=== PATIENT | male | born 1990 | race Caucasian/White ===

== ENCOUNTER 2018-07-09 08:03 | Emergency (ER) | payer MEDICAID, SELFPAY ==
[2018-07-09 08:07] VITALS: BP 141/86; PULSE 58; RESP 16; TEMP 37; O2SAT 99
--- NOTE | 2018-07-09 08:11 | DI.RAD_ITS ---
SYMPTOM/DIAGNOSIS: DISTAL RADIUS PAIN LEFT HAND: No fracture or dislocation is seen. IMPRESSION: Negative left hand.
--- NOTE | 2018-07-09 08:16 | W.ED.GENAD ---
Discharge Plan Discharge Details Chief Complaint: Orthopedic Primary Care Provider: Nba Torres ED Provider: Duglas Gonzalez Home Meds and New Rx's Prescriptions: No Action No Known Home Meds RF: 0 Medical Decision Making MDM Narrative Medical decision making narrative: 28-year-old male presents with left wrist pain. 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 It began after he felt a pop during the day of bad hand cramps. His exam is essentially unremarkable with the exception of tenderness the distal radius and some tenderness with resisted supination. Differential diagnosis would include de Quervain's tenosynovitis, fracture, strain he is referred for X HPI - General Adult General Date/Time Provider Initiated Documentation: 07/09/18 08:10. Limitations to Documentation: no limitations. Information obtained by: patient. History of Present Illness 28 year old M presents to the emergency department with the chief complaint of Left wrist pain, described as moderate, Quality is described as aching, and is localized to the left and upper extremity. Patient reports no radiation. Patient started experiencing this day(s) and it has been constant. Rest improves symptom(s), Movement worsens symptoms . Patient notes no other symptoms.. HPI Narrative: 28-year-old left-handed male presents with 2 days of the abrupt onset of left wrist pain that occurred while he was having full body cramps from suffering heat stroke. He then was pushing himself off the ground and felt a pop in his left wrist. He has had nonradiating, achy, constant pain is worse with movement since that time. Ameliorated by rest. No other complaints. No numbness, tingling, weakness. He says his cramps resolved with potassium Related Data Home Medications Medication Instructions Recorded Confirmed Unknown [No Known Home Meds] 07/09/18 07/09/18 Allergies Allergy/AdvReac Type Severity Reaction Status Date / Time codeine Allergy itchy Unverified 02/23/18 15:33 difficulty breathing General Stated Complaint: Orthopedic JULIO: 5 Review of Systems Review of Systems 6 systems reviewed, otherwise - [facility] Social History Smoking/Tobacco Use Status: Current every day Exam Const General: cooperative and healthy appearing Nutritional Appearance: average body habitus Orientation: alert, awake and oriented x3 HENMT Head: normal to inspection and normocephalic Resp Effort & Inspection: normal respiratory effort and able to speak in complete sentences Neuro General: alert and oriented x3 Extrem General: normal to inspection, full ROM, normal capillary refill and other (Left upper extremity with normal muscular tone and movement. 2+ radial pulse bilaterally. The left wrist is tender at the distal radius. Tender with resisted supination. Tender mildly so with axial loading of the left thumb. Otherwise normal motor, vascular, sensory testing) Psych Appearance: grossly normal and well kempt Course Vital Signs Temperature 37.0 C 07/09/18 08:07 Pulse 58 L 07/09/18 08:07 Respiratory Rate 16 07/09/18 08:07 Blood Pressure 141/86 H 07/09/18 08:07 Pulse Oximetry 99 07/09/18 08:07 Temperature 37.0 C 07/09/18 08:07 Pulse 58 L 07/09/18 08:07 Respiratory Rate 16 07/09/18 08:07 Blood Pressure 141/86 H 07/09/18 08:07 Pulse Oximetry 99 07/09/18 08:07
--- NOTE | 2018-07-09 08:22 | ED.GENADUL_ITS ---
Discharge Plan Discharge Details Chief Complaint: Orthopedic Primary Care Provider: Nba Torres ED Provider: Duglas Gonzalez Home Meds and New Rx's Prescriptions: No Action No Known Home Meds RF: 0 Medical Decision Making MDM Narrative Medical decision making narrative: 28-year-old male presents with left wrist pain. 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 It began after he felt a pop during the day of bad hand cramps. His exam is essentially unremarkable with the exception of tenderness the distal radius and some tenderness with resisted supination. Differential diagnosis would include de Quervain's tenosynovitis, fracture, strain he is referred for X HPI - General Adult General Date/Time Provider Initiated Documentation: 07/09/18 08:10 . Limitations to Documentation: no limitations . Information obtained by: patient . History of Present Illness 28 year old M presents to the emergency department with the chief complaint of Left wrist pain, described as moderate, Quality is described as aching, and is localized to the left and upper extremity. Patient reports no radiation. Patient started experiencing this day(s) and it has been constant. Rest improves symptom(s), Movement worsens symptoms . Patient notes no other symptoms.. HPI Narrative: 28-year-old left-handed male presents with 2 days of the abrupt onset of left wrist pain that occurred while he was having full body cramps from suffering heat stroke. He then was pushing himself off the ground and felt a pop in his left wrist. He has had nonradiating, achy, constant pain is worse with movement since that time. Ameliorated by rest. No other complaints. No numbness, tingling, weakness. He says his cramps resolved with potassium Related Data Home Medications Medication Instructions Recorded Confirmed Unknown [No Known Home Meds] 07/09/18 07/09/18 Allergies Allergy/AdvReac Type Severity Reaction Status Date / Time codeine Allergy itchy Unverified 02/23/18 15:33 difficulty breathing General Stated Complaint: Orthopedic JULIO: 5 Review of Systems Review of Systems 6 systems reviewed, otherwise - [facility] Social History Smoking/Tobacco Use Status: Current every day Exam Const General: cooperative and healthy appearing Nutritional Appearance: average body habitus Orientation: alert, awake and oriented x3 HENMT Head: normal to inspection and normocephalic Resp Effort & Inspection: normal respiratory effort and able to speak in complete sentences Neuro General: alert and oriented x3 Extrem General: normal to inspection, full ROM, normal capillary refill and other ( Left upper extremity with normal muscular tone and movement. 2+ radial pulse bilaterally. The left wrist is tender at the distal radius. Tender with resisted supination. Tender mildly so with axial loading of the left thumb. Otherwise normal motor, vascular, sensory testing) Psych Appearance: grossly normal and well kempt Course Vital Signs Temperature 37.0 C 07/09/18 08:07 Pulse 58 L 07/09/18 08:07 Respiratory Rate 16 07/09/18 08:07 Blood Pressure 141/86 H 07/09/18 08:07 Pulse Oximetry 99 07/09/18 08:07 Temperature 37.0 C 07/09/18 08:07 Pulse 58 L 07/09/18 08:07 Respiratory Rate 16 07/09/18 08:07 Blood Pressure 141/86 H 07/09/18 08:07 Pulse Oximetry 99 07/09/18 08:07
== END 2018-07-09 09:10 | disposition home or self-care (01) ==
PROVIDERS: Emergency Provider Emergency Medicine; PCP Family Medicine
DX: S63.502A Unspecified sprain of left wrist, initial encounter (principal); X50.9XXA Other and unspecified overexertion or strenuous movements or postures, initial encounter
CPT/HCPCS: 29125; 99283; 73130; L3807

== ENCOUNTER 2018-08-07 02:36 | Emergency (ER) | payer MEDICAID, SELFPAY ==
[2018-08-07 02:37] VITALS: BP 149/88; PULSE 92; RESP 17; TEMP 37.7; O2SAT 95
--- NOTE | 2018-08-07 02:43 | DI.RAD_ITS ---
SYMPTOMS/DIAGNOSIS: TRAUMA/PUNCHED WALL LEFT HAND: Three views. No acute fracture or dislocation is seen. There is mild soft tissue swelling at the metacarpophalangeal joints. No radiopaque foreign bodies are identified. IMPRESSION: No acute fracture or dislocation.
--- NOTE | 2018-08-07 03:06 | W.ED.GENAD ---
Discharge Plan Disposition Patient Disposition: [facility] Condition: Good Discharge Details Chief Complaint: Orthopedic Clinical Impression: Contusion of hand, left, Alcohol intoxication Reason For Visit: [place] Primary Care Provider: Nba Torres ED Provider: Ariel Reyes Home Meds and New Rx's Prescriptions: No Action No Known Home Meds RF: 0 Discharge Instructions Instructions: Alcohol Intoxication (ED), Contusion in Adults (ED) Additional Instructions: X-ray is negative, there are no fractures. Use ice and Motrin to help with pain and swelling. You are being taken into protective custody until you are sober. You may follow-up with primary care next week. Return to ED if problems. Referrals: Nba Torres [Primary Care Provider] - Medical Decision Making Patient sent in by police for evaluation of hand injury. He is intoxicated and per police he blew .220 on the breathalyzer. Fingers appear normal. Wrist is normal. Denies other injury. X-rays obtained. Per my review there is no fracture. I am waiting for preliminary radiology report. Patient seen by [facility] at this time and papers to take into protective custody will be done. I did speak to the patient's sister who states she does not have the ability to take responsibility for him tonight. HPI General Mode of arrival: EMS. Date/Time Provider Initiated Documentation: 08/07/18 02:42. Limitations to Documentation: no limitations. Information obtained by: patient. HPI Narrative: Patient is transported from the police station to the ED for evaluation of hand injury. He is intoxicated. He states that he got mad and punched a wall. He denies any other injury. He denies being struck himself. He does admit to drinking. He has left hand pain. He is left-hand dominant. Related Data Home Medications Medication Instructions Recorded Confirmed Unknown [No Known Home Meds] 07/09/18 08/07/18 Allergies Allergy/AdvReac Type Severity Reaction Status Date / Time codeine Allergy itchy Unverified 08/07/18 02:44 difficulty breathing General Stated Complaint: Orthopedic JULIO: 4 Review of Systems Constitutional Denies headache(s) and Denies weakness ENT Denies headache(s) and Denies neck pain Cardiovascular Denies chest pain and Denies dyspnea Respiratory Denies dyspnea Gastrointestinal Denies abdominal pain, Denies nausea and Denies vomiting Musculoskeletal Denies back pain, Denies neck pain, Denies numbness and Reports other (Hand pain) Integumentary/Breasts Denies wounds Neurologic Denies headache(s), Denies numbness and Denies weakness [facility] Social History Smoking/Tobacco Use Status: Current every day Exam Const General: cooperative and no acute distress Orientation: alert and oriented x3 HENMT Head: normocephalic and atraumatic Eyes Pupils: PERRL EOM: EOM intact bilaterally Resp Effort & Inspection: normal respiratory effort Auscultation: clear to auscultation bilaterally Cardio Rate: regular rate Rhythm: regular rhythm Heart Sounds: S1 normal and S2 normal Skin Trauma: no lacerations or abrasions Neuro General: alert, oriented x3, gait normal, no focal motor deficits and CN's II-XI intact bilaterally Sensory Exam: no sensory deficits noted Extrem Left upper extremity: wrist Details: normal to inspection, normal ROM and radial pulse present; no tenderness and no swelling and hand Details: neuromotor exam normal, neurosensory exam normal, tenderness and swelling Course Vital Signs Temperature 99.9 F H 08/07/18 02:37 Pulse 92 H 08/07/18 02:37 Respiratory Rate 17 08/07/18 02:37 Blood Pressure 149/88 H 08/07/18 02:37 Pulse Oximetry 95 08/07/18 02:37 Temperature 99.9 F H 08/07/18 02:37 Temperature Source Temporal Artery Scan 08/07/18 02:37 Pulse 92 H 08/07/18 02:37 Respiratory Rate 17 08/07/18 02:37 Respiratory Effort 08/07/18 02:37 Blood Pressure 149/88 H 08/07/18 02:37 Pulse Oximetry 95 08/07/18 02:37 Oxygen Delivery Method Room Air 08/07/18 02:37 Oxygen Flow Rate 0 08/07/18 02:37 Pain Level 10 08/07/18 02:43
--- NOTE | 2018-08-07 04:02 | DI.VRAD_ITS ---
EXAM: XR Left Hand Complete, 3 or More Views CLINICAL HISTORY: 28 years old, male; Pain; Hand; Left TECHNIQUE: Frontal, lateral and oblique views of the left hand. COMPARISON: CR XR hand LT complete 07/09/2018 8:17 AM FINDINGS: Bones/joints: Unremarkable. No acute fracture. No dislocation. Soft tissues: Mild soft tissue swelling. No radiopaque foreign body. IMPRESSION: No fractures or dislocations. Mild soft tissue swelling over the dorsum of the left hand. Dictated and Authenticated by: Jose C Raya MD. Ordering:NOEMÍ JOSE MD
== END 2018-08-07 03:49 | disposition home or self-care (01) ==
PROVIDERS: Emergency Provider Emergency Medicine; PCP Family Medicine
DX: S60.222A Contusion of left hand, initial encounter (principal); W22.8XXA Striking against or struck by other objects, initial encounter; F10.129 Alcohol abuse with intoxication, unspecified
CPT/HCPCS: 99285; 73130; 99284

== ENCOUNTER 2018-10-05 07:00 | Emergency (ER) | payer MEDICAID, SELFPAY ==
[2018-10-05 07:04] VITALS: BP 142/95; PULSE 77; RESP 18; TEMP 36.7; O2SAT 99
--- NOTE | 2018-10-05 07:22 | W.ED.GENAD ---
Discharge Plan Disposition Patient Disposition: HOME Condition: Improving Discharge Details Chief Complaint: DentalOral Clinical Impression: Odontalgia Primary Care Provider: Nba Torres ED Provider: Duglas Gonzalez Home Meds and New Rx's Prescriptions: New penicillin V potassium 500 mg tablet 500 mg PO TID 10 Days Qty: 30 RF: 0 Discharge Instructions Instructions: Toothache (ED) Additional Instructions: Take penicillin as prescribed. Warm, salt water gargling will assist in decreasing her discomfort. Tylenol and ibuprofen as needed for pain. Follow-up with dentistry as planned, return to the emergency department for any acute concerns. Medical Decision Making 28-year-old male presents from home with day 2 of left mandibular pain and swelling. He is partially edentulous with numerous dental caries and a history of previous dental infections. He arrives with unremarkable vital signs. Is not of evidence of abscess. He does appear to have periapical infection of the lower central incisors. He has plans for follow-up with dentistry. Patient consented and agreed to dental block and was given an inferior alveolar nerve block with good success. I have started him on ibuprofen and will initiate a course of penicillin. He is to follow-up with dentistry HPI General Mode of arrival: ambulatory. Date/Time Provider Initiated Documentation: 10/05/18 07:13. Limitations to Documentation: no limitations. Information obtained by: patient. History of Present Illness 28 year old M presents to the emergency department with the chief complaint of Left lower dental pain, described as similar to prior episodes, Quality is described as aching, dull and constant, and is localized to the mouth and left. Patient started experiencing this hour(s) and it has been constant. No relieving factors improve symptom(s), Eating worsens symptoms . Patient notes no other symptoms.. Related Data Home Medications Medication Instructions Recorded Confirmed penicillin V potassium 500 mg PO TID 10 Days #30 tab 10/05/18 Previous Rx's Medication Instructions Recorded penicillin V potassium 500 mg PO TID 10 Days #30 tab 10/05/18 Allergies Allergy/AdvReac Type Severity Reaction Status Date / Time codeine Allergy itchy Unverified 10/05/18 07:08 difficulty breathing General Stated Complaint: DentalOral JULIO: 4 Review of Systems Review of Systems For systems reviewed and otherwise - [facility] Social History Smoking/Tobacco Use Status: Current every day Social History Smoking/Tobacco Use Status: Current every day Exam Narrative Exam Narrative: GEN: awake, alert, oriented 3. Pleasant, well groomed, interactive. HEAD: Normocephalic, atraumatic ENT: Mucous membranes moist, oropharynx nearly completely edentulous, dental caries present left lower central incisors with surrounding tenderness to percussion. No buccal or lingual fluctuance, External ear exam unremarkable EYES: PERRL, EOMI NECK: Full ROM, no HELADIO, no menigismus EXT: Full ROM, no edema, no rash Neuro: Grossly normal neurologic exam, conversant, interactive. Psych: Speech fluent, thoughts congruent, affect normal Course Vital Signs Temperature 36.7 C 10/05/18 07:04 Pulse 77 10/05/18 07:04 Respiratory Rate 18 10/05/18 07:04 Blood Pressure 142/95 H 10/05/18 07:04 Pulse Oximetry 99 10/05/18 07:04 Temperature 36.7 C 10/05/18 07:04 Temperature Source Skin 10/05/18 07:04 Pulse 77 10/05/18 07:04 Respiratory Rate 18 10/05/18 07:04 Respiratory Effort 10/05/18 07:05 Blood Pressure 142/95 H 10/05/18 07:04 Blood Pressure Position Sitting 10/05/18 07:04 Pulse Oximetry 99 10/05/18 07:04 Oxygen Delivery Method Room Air 10/05/18 07:04 Oxygen Flow Rate 0 10/05/18 07:04 Pain Level 8 10/05/18 07:05 Procedures Nerve Block Nerve Block 1: Local Anesthetic: Bupivicaine 0.25% Amount of anesthesia used (mL): 2 Side: left Intraoral Nerve Block: inferior alveolar Procedure Successful: Yes Patient Tolerated Procedure: well Complications: none
--- NOTE | 2018-10-05 07:26 | ED.GENADUL_ITS ---
Discharge Plan Disposition Patient Disposition: HOME Condition: Improving Discharge Details Chief Complaint: DentalOral Clinical Impression: Odontalgia Primary Care Provider: Nba Torres ED Provider: Duglas Gonzalez Home Meds and New Rx's Prescriptions: New penicillin V potassium 500 mg tablet 500 mg PO TID 10 Days Qty: 30 RF: 0 Discharge Instructions Instructions: Toothache (ED) Additional Instructions: Take penicillin as prescribed. Warm, salt water gargling will assist in decreasing her discomfort. Tylenol and ibuprofen as needed for pain. Follow-up with dentistry as planned, return to the emergency department for any acute concerns. Medical Decision Making 28-year-old male presents from home with day 2 of left mandibular pain and swelling. He is partially edentulous with numerous dental caries and a history of previous dental infections. He arrives with unremarkable vital signs. Is not of evidence of abscess. He does appear to have periapical infection of the lower central incisors. He has plans for follow-up with dentistry. Patient consented and agreed to dental block and was given an inferior alveolar nerve block with good success. I have started him on ibuprofen and will initiate a course of penicillin. He is to follow-up with dentistry HPI General Mode of arrival: ambulatory . Date/Time Provider Initiated Documentation: 10/05/18 07:13 . Limitations to Documentation: no limitations . Information obtained by: patient . History of Present Illness 28 year old M presents to the emergency department with the chief complaint of Left lower dental pain, described as similar to prior episodes, Quality is described as aching, dull and constant, and is localized to the mouth and left. Patient started experiencing this hour(s) and it has been constant. No relieving factors improve symptom(s), Eating worsens symptoms . Patient notes no other symptoms.. Related Data Home Medications Medication Instructions Recorded Confirmed penicillin V potassium 500 mg PO TID 10 Days #30 tab 10/05/18 Previous Rx's Medication Instructions Recorded penicillin V potassium 500 mg PO TID 10 Days #30 tab 10/05/18 Allergies Allergy/AdvReac Type Severity Reaction Status Date / Time codeine Allergy itchy Unverified 10/05/18 07:08 difficulty breathing General Stated Complaint: DentalOral JULIO: 4 Review of Systems Review of Systems For systems reviewed and otherwise - [facility] Social History Smoking/Tobacco Use Status: Current every day Social History Smoking/Tobacco Use Status: Current every day Exam Narrative Exam Narrative: GEN: awake, alert, oriented 3. Pleasant, well groomed, interactive. HEAD: Normocephalic, atraumatic ENT: Mucous membranes moist, oropharynx nearly completely edentulous, dental caries present left lower central incisors with surrounding tenderness to percussion. No buccal or lingual fluctuance, External ear exam unremarkable EYES: PERRL, EOMI NECK: Full ROM, no HELADIO, no menigismus EXT: Full ROM, no edema, no rash Neuro: Grossly normal neurologic exam, conversant, interactive. Psych: Speech fluent, thoughts congruent, affect normal Course Vital Signs Temperature 36.7 C 10/05/18 07:04 Pulse 77 10/05/18 07:04 Respiratory Rate 18 10/05/18 07:04 Blood Pressure 142/95 H 10/05/18 07:04 Pulse Oximetry 99 10/05/18 07:04 Temperature 36.7 C 10/05/18 07:04 Temperature Source Skin 10/05/18 07:04 Pulse 77 10/05/18 07:04 Respiratory Rate 18 10/05/18 07:04 Respiratory Effort 10/05/18 07:05 Blood Pressure 142/95 H 10/05/18 07:04 Blood Pressure Position Sitting 10/05/18 07:04 Pulse Oximetry 99 10/05/18 07:04 Oxygen Delivery Method Room Air 10/05/18 07:04 Oxygen Flow Rate 0 10/05/18 07:04 Pain Level 8 10/05/18 07:05 Procedures Nerve Block Nerve Block 1: Local Anesthetic: Bupivicaine 0.25% Amount of anesthesia used (mL): 2 Side: left Intraoral Nerve Block: inferior alveolar Procedure Successful: Yes Patient Tolerated Procedure: well Complications: none
[2018-10-05] MEDS: Penicillin V POTASSIUM 500 MG TAB PO (07:31)
[2018-10-05] MEDS: Ibuprofen 800 MG TAB PO (07:31)
== END 2018-10-05 07:33 | disposition home or self-care (01) ==
LOC: ER 07:35
PROVIDERS: Emergency Provider Emergency Medicine; PCP Family Medicine
DX: R68.84 Jaw pain (principal); K04.7 Periapical abscess without sinus
CPT/HCPCS: 64402

== ENCOUNTER 2018-12-22 13:17 | Emergency (ER) | payer MEDICAID, SELFPAY ==
[2018-12-22 13:32] VITALS: BP 145/63; PULSE 78; RESP 12; TEMP 37; O2SAT 98
--- NOTE | 2018-12-22 14:47 | ED.GENADUL_ITS ---
Discharge Plan Disposition Patient Disposition: HOME Condition: Stable Discharge Details Chief Complaint: Orthopedic Clinical Impression: Peripheral neuropathy, Left wrist sprain Primary Care Provider: Nba Torres ED Provider: Solange Zhao Home Meds and New Rx's Prescriptions: No Action No Known Home Meds RF: 0 Discharge Instructions Instructions: Peripheral Neuropathy (ED), Wrist Sprain (ED) Additional Instructions: Alternate Tylenol and Motrin as needed and directed for pain. Apply ice to the affected area several times daily for 20 minutes at a time. Follow-up with your primary care doctor in 1 week for reevaluation as needed. Return immediately to the emergency department any worsening or new concerning symptoms. Stand Alone Forms: Work Release Discharge Data Discharge Date/Time-TO BE ENTERED AT DEPARTURE: 12/22/18 15:00 Discharge Physician: Solange Zhao Medical Decision Making 28-year-old male presents with left hand and wrist pain, tingling and weakness extending from his left wrist down into his hand and up to his forearm. 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 Neurovascularly intact. Motor sensory grossly intact, although appears to have pain when assessing neurological function. Normal skin temperature and color. Presentation appears most likely consistent with a peripheral neuropathy, which may be carpal tunnel or cubital tunnel syndrome. Most likely source of pain is from the wrist. His presentation may be due to a wrist sprain which may be causing pain and tingling in hand. He has no other focal deficits and his symptoms appear isolated to the distal upper extremity. Do not suspect a central cause to his symptoms, and this appears more peripheral. Patient states he is mainly here for a work note. Will give a work note, instructed to rest left hand for the next week, alternate Tylenol and Motrin. Patient also given wrist splint. He is instructed to return here with any worsening or new concerning symptoms. HPI General Mode of arrival: ambulatory . Date/Time Provider Initiated Documentation: 12/22/18 13:54 . Limitations to Documentation: no limitations . Information obtained by: patient . HPI Narrative: Pt is a 28yo M who presents with L hand pain, weakness and tingling since yesterday morning. 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 Pt states he woke up yesterday with pain in his L wrist extending into his L hand. He also has tingling radiating up to his L forearm and down to all of his fingers but worse in his L thumb. He was painting with his L hand the day before the symptoms started. He states he has weakness and worsening pain and tingling with use of his hand. He states he has a cold sensation radiation up to his L forearm and down to his hand. He denies headache, neck pain, shoulder pain, leg pain or weakness or dizziness. Pt states he is also here for a work note as his employer advised him to be evaluated on when he can return to work and use his hand. Related Data Home Medications Medication Instructions Recorded Confirmed Unknown [No Known Home Meds] 12/22/18 12/22/18 Allergies Allergy/AdvReac Type Severity Reaction Status Date / Time codeine Allergy itchy Unverified 12/22/18 13:35 difficulty breathing General Stated Complaint: Orthopedic JULIO: 4 Review of Systems Review of Systems All systems reviewed & are unremarkable except as noted in HPI and below Constitutional Reports as per HPI, Denies chills and Denies fever(s) Eyes Denies blurry vision ENT Denies dizziness, Denies sore throat and Denies throat swelling Cardiovascular Denies chest pain and Denies dyspnea Respiratory Denies cough and Denies dyspnea Gastrointestinal Denies abdominal pain, Denies diarrhea and Denies vomiting Genitourinary Denies hematuria and Denies dysuria Musculoskeletal Denies back pain, Reports arthralgias, Reports numbness and Reports tingling Integumentary/Breasts Denies lesions and Denies rash Neurologic Denies dizziness, Reports focal weakness, Reports numbness and Reports tingling Allergic/Immunologic Denies throat swelling [facility] Medical History ADHD (Acute) Bipolar disorder (Chronic) Seizure disorder (Chronic) Surgical History History of hernia repair (Chronic) Social History Smoking and Tabacco status: Current every day alcohol intake: current alcohol intake frequency: a few times a week substance use type: marijuana Exam Const General: cooperative, healthy appearing and no acute distress HENMT Head: normal to inspection Mouth: oral mucosae normal Eyes General: appearance normal, both eyes and all related structures Neck Neck: normal visual inspection Resp Effort & Inspection: normal respiratory effort and able to speak in complete sentences Cardio Rate: regular rate Skin General skin exam: no rashes or lesions noted Neuro General: alert, awake, oriented x3, moves all extremities, normal light touch, pain and propioception and no focal motor deficits Motor: other (Muscle strength 5/5 b/l UE, appears in pain with testing motor function) Sensory Exam: no sensory deficits noted DTR's: Rt Triceps: 1+, Lt Triceps: 1+, Rt Biceps: 1+, Lt Biceps: 1+, Rt Brachioradialis: 1+ and Lt Brachioradialis: 1+ Extrem General: normal to inspection, full ROM and normal capillary refill Other: Normal skin color b/l UE. No deformity. No edema/ecchymoses/erythema of b/l UE. Reproduction of pain and tingling in hand and all fingers with Phalen's and Tinel's test but not obvious positive signs. B/L radial and ulnar pulses intact. Psych Appearance: grossly normal Affect: normal affect Course Vital Signs Temperature 98.6 F 12/22/18 13:32 Pulse 78 12/22/18 13:32 Respiratory Rate 12 12/22/18 13:32 Blood Pressure 145/63 H 12/22/18 13:32 Pulse Oximetry 98 12/22/18 13:32 Temperature 98.6 F 12/22/18 13:32 Temperature Source Temporal Artery Scan 12/22/18 13:32 Pulse 78 12/22/18 13:32 Respiratory Rate 12 12/22/18 13:32 Respiratory Effort Non-Labored 12/22/18 13:34 Blood Pressure 145/63 H 12/22/18 13:32 Blood Pressure Position Sitting 12/22/18 13:32 Pulse Oximetry 98 12/22/18 13:32 Oxygen Delivery Method Room Air 12/22/18 13:32 Oxygen Flow Rate 0 12/22/18 13:32 Pain Level 0 12/22/18 13:34
== END 2018-12-22 15:00 | disposition home or self-care (01) ==
PROVIDERS: Emergency Provider Physician Assistant; PCP Family Medicine
DX: G62.9 Polyneuropathy, unspecified (principal); S63.502A Unspecified sprain of left wrist, initial encounter; X50.3XXA Overexertion from repetitive movements, initial encounter
CPT/HCPCS: 29125; 99283; 99282; L3908

== ENCOUNTER 2019-01-31 18:44 | Outpatient (REF) | payer MEDICAID, SELFPAY ==
[2019-01-31 19:36] LABS: HCT 42.9 % (40.0-50.0); HGB 14.2 g/dL (13.5-17.5); Mean Corp. HGB Concentration 33.1 g/dL (32.0-36.0); Mean Corpuscular Hemoglobin 31.8 pg (27.0-33.0); Mean Corpuscular Volume 96.2 fL (80-95); Mean Platelet Volume 11.4 fL (8.0-11.0); Platelet Count 270 x1000/uL (130-400); RBC 4.46 m/cumm (4.50-6.00); RBC Distribution Width 12.8 % (11.8-14.1); White Blood Cell Count 6.19 k/cumm (4.4-10.8)
[2019-01-31 19:54] LABS: ALT 25 U/L (12-78); AST 15 U/L (15-37); Albumin 3.9 g/dL (3.4-5.0); Alkaline Phosphatase 56 U/L (46-116); Anion Gap 8.2 mmol/L (3-11); BUN 15 mg/dL (7-18); Bilirubin, Total 0.6 mg/dL (0.2-1.0); CO2 28.8 mmol/L (21.0-32.0); CREATININE 0.88 mg/dL (0.70-1.30); Calcium 9.3 mg/dL (8.5-10.1); Chloride 104 mmol/L (98-107); Cholesterol 145 mg/dL (50-200); Glucose 99 mg/dL (70-100); HDL Cholesterol 59 mg/dL (40-60); LDL CHOLESTEROL 79 mg/dL (<100); Potassium 4.5 mmol/L (3.5-5.1); Sodium 141 mmol/L (136-145); TSH (W/Ref FT4) 0.57 uIU/mL (0.358-3.74); Total Protein 6.7 g/dL (6.4-8.2); Triglyceride 48 mg/dL (30-150)
[2019-02-02 11:27] LABS: HBs Antibody, Quant 11.4 mIU/mL; Hepatitis B Surface Ab Positive
[2019-02-02 12:11] LABS: Syphilis Serology (RPR) Negative (Negative)
[2019-02-02 13:23] LABS: HIV-1/2 Ag & Ab Screen Negative (NEGAT)
[2019-02-02 15:57] LABS: Hepatitis C Ab w Rflx HCV PCR Negative (NEGAT)
== END 2019-01-31 19:04 ==
LOC: NCHCN 18:44
PROVIDERS: PCP Family Medicine; Visit Provider Family Medicine
DX: F31.9 Bipolar disorder, unspecified (principal); Z11.4 Encounter for screening for human immunodeficiency virus [HIV]; Z11.59 Encounter for screening for other viral diseases; G40.909 Epilepsy, unspecified, not intractable, without status epilepticus
CPT/HCPCS: 80053; 80061; 83721; 85027; 86706; 86803; 87389; 84443; 86592

== ENCOUNTER 2019-02-22 06:33 | Emergency (ER) | payer MEDICAID, SELFPAY ==
[2019-02-22 06:35] VITALS: BP 131/102; PULSE 104; RESP 20; TEMP 37.4; O2SAT 93
--- NOTE | 2019-02-22 06:50 | ED.GENADUL_ITS ---
Discharge Plan Disposition Patient Disposition: HOME Condition: Good Discharge Details Chief Complaint: RespSymp Clinical Impression: URI (upper respiratory infection) Primary Care Provider: Nba Torres ED Provider: Tejinder De Los Santos Home Meds and New Rx's Prescriptions: No Action lamotrigine [Lamictal] 100 mg Tablet 100 mg PO BID RF: 0 risperidone [Risperdal] 0.5 mg Tablet 0.5 mg PO BID RF: 0 Discharge Instructions Instructions: Upper Respiratory Infection (ED) Additional Instructions: Please use the inhaler, 2 puffs every 4-6 hours for the next 2-3 days. The steroid that you have been given here will last 3 days. Please take the next 2- 3 days off, rest, drink plenty of fluids. Please follow-up promptly with your primary care provider. If you are not feeling better after 5-7 days please follow-up closely with your primary care provider for reevaluation. If you notice any worsening of your symptoms, or any new symptoms such as vomiting, diarrhea, fever, chills, shortness of breath, chest pain, numbness, weakness, or fainting , please return immediately to the emergency department for reevaluation. Please follow up with your primary care provider as soon as possible for reassessment and reevaluation. As always, it was a pleasure participating in your medical care today. Stand Alone Forms: Work Release Referrals: Nba Torres [Primary Care Provider] - Medical Decision Making This is a pleasant 28-year-old male who presents today for evaluation of cough for the last 2 days, and upper respiratory-like symptoms. Patient denies any fever. Exam demonstrates normal lung sounds, no neck pain, no neck stiffness. He is afebrile here. Patient is a notable smoker. The patient's symptoms have been a time. That would seem to be past the potential treatment with Tamiflu for influenza, will hold off on testing for the time being. With no evidence of concerning lung sounds, hypoxemia, I do not feel that chest x-ray is indicated at this time. Feels signs and symptoms most likely from a viral URI, potentially mild bronchitis. Will give Decadron here, as well as an albuterol inhaler. Recommend close follow-up with his PCP if he has no improvement over the next few days. Signs and symptoms are clinically inconsistent with severe pneumonia at this time. Patient will be given a work note which is his request. I have extensively reviewed the treatment plan and discharge instructions with the patient. I have addressed all patient concerns at this time. The patient was made aware of what symptoms to monitor for that would warrant a return to the emergency department. Discussed the plan with the patient, they demonstrate verbal understanding and agreement with our assessment and plan at this time. HPI General Date/Time Provider Initiated Documentation: 02/22/19 06:33 . HPI Narrative: This is a 28-year-old male with a past medical history of seizures on Lamictal, who presents today for evaluation of cough and fatigue. The patient states that for the last 1.5-2 days he has had symptoms of cough, mild sore throat, runny nose, congestion. He has not had any fever. His cough is been relatively nonproductive. He denies any severe chest pain, hemoptysis, vomiting, diarrhea, numbness, tingling, weakness, headache, or neck pain. He denies any current IV or illicit drug use. He denies any recent long trips. He does admit to multiple other sick contacts with similar symptoms at his work. He does still continue to smoke a notable amount. Patient denies any other modifying factors. No other complaints at this time. Related Data Home Medications Medication Instructions Recorded Confirmed lamotrigine [Lamictal] 100 mg PO BID 02/22/19 02/22/19 risperidone [Risperdal] 0.5 mg PO BID 02/22/19 02/22/19 Allergies Allergy/AdvReac Type Severity Reaction Status Date / Time No Known Allergies Allergy Unverified 02/22/19 06:40 General Stated Complaint: RespSymp JULIO: 4 Review of Systems Review of Systems All systems reviewed & are unremarkable except as noted in HPI and below [facility] Social History Smoking/Tobacco Use Status: Current every day Tobacco Type: cigarettes Alcohol Intake: current Alcohol Intake frequency: a few times a week Drug use: Daily Substance use type: marijuana Do you feel safe at home: Yes Do you feel safe in your relationship?: Yes Exam Narrative Exam Narrative: 1.Const: Well-nourished, Well-developed, appearing stated age 2.Eyes: PERRL, no conjunctival injection, and symmetrical lids. 3.ENT: Atraumatic external nose and ears. Moist MM. Neck: Symmetric, trachea midline, No thyromegaly. Patient demonstrates good movement of cervical neck. There is no nuchal rigidity, no nuchal tenderness. Patient is able to flex the neck without any difficulty or significant pain. Negative Kernig's and Brudzinski sign. 4.CVS: +S1/S2, No murmurs or gallops. Peripheral pulses 2+ and equal in all extremities. Brisk capillary refill in all extremities. 5.RESP: Unlabored respiratory effort. Clear to auscultation bilaterally. No wheezes rales or rhonchi 6.GI: Soft, Nontender/Nondistended, No hepatosplenomegaly. No guarding or rebound. 7.MSK: Normocephalic/Atraumatic, Extremities w/o deformity or ttp No cyanosis or clubbing, Normal movement of all extremities 8.Skin: Warm, Dry. No rashes or lesions. 9.Neuro: vp transportation II-XII grossly intact. Sensation grossly intact, no focal neurologic deficits. 10.Psych: (AAO) x3. Appropriate mood and affect Course Vital Signs Temperature 37.4 C 02/22/19 06:35 Pulse 104 H 02/22/19 06:35 Respiratory Rate 20 02/22/19 06:35 Blood Pressure 131/102 H 02/22/19 06:35 Pulse Oximetry 93 L 02/22/19 06:35 Temperature 37.4 C 02/22/19 06:35 Temperature Source Temporal Artery Scan 02/22/19 06:35 Pulse 104 H 02/22/19 06:35 Respiratory Rate 20 02/22/19 06:35 Respiratory Effort 02/22/19 06:35 Blood Pressure 131/102 H 02/22/19 06:35 Blood Pressure Position Sitting 02/22/19 06:35 Pulse Oximetry 93 L 02/22/19 06:35 Oxygen Delivery Method Room Air 02/22/19 06:35 Oxygen Flow Rate 0 02/22/19 06:35 Pain Level 0 02/22/19 06:35
== END 2019-02-22 06:48 | disposition home or self-care (01) ==
PROVIDERS: Emergency Provider Student in an Organized Health Care Education/Training Program; PCP Family Medicine
DX: J06.9 Acute upper respiratory infection, unspecified (principal)
CPT/HCPCS: 99283

== ENCOUNTER 2019-04-12 22:31 | Emergency (ER) | payer MEDICAID, SELFPAY ==
[2019-04-12 22:37] VITALS: BP 150/107; PULSE 107; RESP 20; TEMP 36.8; O2SAT 96
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
[2019-04-12] MEDS: Acetaminophen 500 MG TAB 1000 MG PO (23:10)
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
[2019-04-12 23:34] VITALS: BP 150/107; PULSE 107; RESP 20; O2SAT 96
== END 2019-04-12 23:29 | disposition home or self-care (01) ==
PROVIDERS: Emergency Provider Emergency Medicine; PCP Family Medicine
DX: S16.1XXA Strain of muscle, fascia and tendon at neck level, initial encounter (principal); R51 Headache; Y04.0XXA Assault by unarmed brawl or fight, initial encounter
CPT/HCPCS: 99284; 70450; 70486; 72125

== ENCOUNTER 2019-06-26 09:31 | Emergency (ER) | payer MEDICAID, SELFPAY ==
[2019-06-26 09:36] VITALS: BP 128/77; PULSE 63; RESP 16; TEMP 36.6; O2SAT 100
--- NOTE | 2019-06-26 09:47 | ED.GENADUL_ITS ---
Discharge Plan Disposition Patient Disposition: HOME Discharge Details Chief Complaint: Orthopedic Clinical Impression: Arthritis of wrist, left, Current smoker Primary Care Provider: Nba Torres ED Provider: Akshat Spears Home Meds and New Rx's Prescriptions: Continued lamotrigine [Lamictal] 100 mg Tablet 100 mg PO BID RF: 0 risperidone [Risperdal] 0.5 mg Tablet 0.5 mg PO BID RF: 0 Discharge Instructions Instructions: How to Stop Smoking (ED), Wrist Sprain (ED) Additional Instructions: Please use wrist splint for the next 2 weeks. Please take ibuprofen over the counter. Take 600mg by mouth every 6 hours as needed for pain. Please contact your primary care physician to arrange follow-up. Return to the ER for any worsening or new concerning symptoms. Stand Alone Forms: Work Release Referrals: Nba Torres [Primary Care Provider] - Medical Decision Making 28yo m here with burning discomfort in his left wrist that radiates into his digits over the past 1 month. Patient is neurovascular intact distally. Suspect overuse injury of the left wrist and nerve irritation. A left wrist universal splint was applied by nursing. Patient was instructed to use for the next 1 to 2 weeks and rest his hand. He was encouraged to follow-up with his primary care physician. I did spend greater than 5 minutes addressing smoking cessation. Patient is motivated to quit. I encouraged him to follow-up with his primary care physician specifically about this. Usual and customary discharge instructions were provided. HPI General Mode of arrival: ambulatory . Date/Time Provider Initiated Documentation: 06/26/19 09:38 . Limitations to Documentation: no limitations . Information obtained by: patient . HPI Narrative: 28-year-old male presents with chief complaint of left hand discomfort. Patient notes that for the past month or so he has had discomfort in his left wrist and hand. Discomfort is described as a burning pain. Pain seems worse after sleeping some mornings and he thinks he may be sleeping on his arm in an awkward position. 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 He does not recall any specific traumatic injury. No associated numbness or weakness. No rash. No fevers. Related Data Home Medications Medication Instructions Recorded Confirmed lamotrigine [Lamictal] 100 mg PO BID 02/22/19 06/26/19 risperidone [Risperdal] 0.5 mg PO BID 02/22/19 06/26/19 Allergies Allergy/AdvReac Type Severity Reaction Status Date / Time No Known Allergies Allergy Unverified 06/26/19 09:39 General Stated Complaint: Orthopedic JULIO: 4 Review of Systems Musculoskeletal Reports as per HPI Integumentary/Breasts Reports as per HPI Neurologic Reports as per HPI [facility] Medical History ADHD (Acute) Bipolar disorder (Chronic) Seizure disorder (Chronic) Surgical History History of hernia repair (Chronic) Social History Smoking/Tobacco Use Status: Current every day Tobacco Type: cigarettes Alcohol Intake: current Alcohol Intake frequency: a few times a month Alcohol type: beer Drug use: Daily Substance use type: marijuana Do you feel safe at home: Yes Do you feel safe in your relationship?: Yes Exam Const General: cooperative and no acute distress Eyes Conjunctivae: normal conjunctivae Cardio Rate: regular rate and not tachycardic Rhythm: regular rhythm Skin General skin exam: no rashes or lesions noted Neuro General: alert, awake, oriented x3 and tone normal Motor: strength 5/5 throughout (all digits left hand) Sensory Exam: no sensory deficits noted (distal left hand all digits) Extrem General: no edema Left upper extremity: wrist Details: tenderness Location: of the volar wrist, normal ROM and normal vascular exam; no swelling, no unusual warmth, no crepitus and no deformity and hand Details: normal capillary refill, neuromotor exam normal, neurosensory exam normal, tendon exam normal, tenderness Location: of the palm Location: centrally, vascular exam Details: radial pulse present Detai ls: 2+, normal ROM of fingers and no swelling; no unusual warmth Psych Appearance: grossly normal Mental Status: mental status grossly normal Course Vital Signs Temperature 36.6 C 06/26/19 09:36 Pulse 63 06/26/19 09:36 Respiratory Rate 16 06/26/19 09:36 Blood Pressure 128/77 06/26/19 09:36 Pulse Oximetry 100 06/26/19 09:36 Temperature 36.6 C 06/26/19 09:36 Temperature Source Skin 06/26/19 09:36 Pulse 63 06/26/19 09:36 Respiratory Rate 16 06/26/19 09:36 Respiratory Effort Non-Labored 06/26/19 09:36 Blood Pressure 128/77 06/26/19 09:36 Blood Pressure Position Sitting 06/26/19 09:36 Pulse Oximetry 100 06/26/19 09:36 Oxygen Delivery Method Room Air 06/26/19 09:36 Oxygen Flow Rate 0 06/26/19 09:36 Pain Level 6 06/26/19 09:36
== END 2019-06-26 09:56 | disposition home or self-care (01) ==
PROVIDERS: Emergency Provider Student in an Organized Health Care Education/Training Program; PCP Family Medicine
DX: M19.032 Primary osteoarthritis, left wrist (principal); F17.210 Nicotine dependence, cigarettes, uncomplicated
CPT/HCPCS: 29125; 99283; 99406; L3908

== ENCOUNTER 2020-05-21 11:26 | Emergency (ER) | payer MEDICAID, SELFPAY ==
[2020-05-21 11:29] VITALS: BP 137/86; PULSE 73; RESP 16; TEMP 36.7; O2SAT 99
--- NOTE | 2020-05-21 12:17 | ED.GENADUL_ITS ---
Discharge Plan Disposition Patient Disposition: HOME Condition: Stable Discharge Details Chief Complaint: Sorethroat Clinical Impression: Pharyngitis Primary Care Provider: Nba Torres ED Provider: Isac Meza Home Meds and New Rx's Prescriptions: New amoxicillin 875 mg tablet 875 mg PO BID Qty: 20 RF: 0 Continued lamotrigine [Lamictal] 100 mg Tablet 100 mg PO BID RF: 0 risperidone [Risperdal] 0.5 mg Tablet 0.5 mg PO BID RF: 0 Discharge Instructions Instructions: Pharyngitis (ED) Additional Instructions: Amoxicillin as directed. Jqgb-ttc-[id number] medications such as Tylenol and/or Motrin, Chloraseptic [place] as directed symptomatic control. Plenty of fluids to avoid dehydration. Please watch for new or worsening symptoms and return to the ER for any concerns Discharge Data Discharge Date/Time-TO BE ENTERED AT DEPARTURE: 05/21/20 12:24 Medical Decision Making 29-year-old gentleman with sore throat for the past 2-3 days with subjective fever. Clinically in the setting of pharyngeal erythema with exudates, subjective fever, lymphadenopathy, will treat with antibiotics. Rapid strep test was already obtained per protocol prior to my evaluation. Rapid strep negative, culture pending. Patient with no additional questions or concerns and is comfortable discharge at this time Medical Records Medical records reviewed: Yes I reviewed the patient's medical records. Lab Data Lab results reviewed: Yes I reviewed the patient's lab results. Lab results narrative: 05/21/20 11:35 Pharynx Throat Culture - Pending HPI General Mode of arrival: ambulatory . Date/Time Provider Initiated Documentation: 05/21/20 11:31 . Limitations to Documentation: no limitations . Information obtained by: patient . HPI Narrative: 29-year-old gentleman with history of seizure disorder, bipolar disorder, ADHD, presents with sore throat for the past 3 days. He reports worse with swallowing. Subjective fever and mild left ear pain. Denies recent travel or sick contact. Has not taken any wnru-njo-hxtztdl medications for his symptoms. Denies cough, abdominal pain, nausea, vomiting. He is able to manage his secretions and tolerate p.o. intake Related Data Home Medications Medication Instructions Recorded Confirmed lamotrigine [Lamictal] 100 mg PO BID 02/22/19 06/26/19 risperidone [Risperdal] 0.5 mg PO BID 02/22/19 06/26/19 amoxicillin 875 mg PO BID #20 tab 05/21/20 Previous Rx's Medication Instructions Recorded amoxicillin 875 mg PO BID #20 tab 05/21/20 Allergies Allergy/AdvReac Type Severity Reaction Status Date / Time No Known Allergies Allergy Unverified 05/21/20 11:33 General Stated Complaint: Sorethroat JULIO: 4 Review of Systems Constitutional Constitutional: Reports fever(s) (Subjective) Eyes Eyes: Denies eye discharge ENT Ears, Nose, Mouth, and Throat: Reports otalgia and Reports sore throat Cardiovascular Cardiovascular: Denies chest pain and Denies dyspnea Respiratory Respiratory: Denies cough and Denies dyspnea Gastrointestinal Gastrointestinal: Denies abdominal pain, Denies nausea and Denies vomiting Integumentary/Breasts Skin/Breast: Denies rash [facility] Medical History ADHD (Acute) Bipolar disorder (Chronic) Seizure disorder (Chronic) Surgical History History of hernia repair (Chronic) Social History Smoking/Tobacco Use Status: Current every day Tobacco Type: cigarettes Alcohol Intake: current Alcohol Intake frequency: a few times a month Alcohol type: beer Drug use: Daily Substance use type: marijuana Do you feel safe at home: Yes Do you feel safe in your relationship?: Yes Exam Const General: cooperative, healthy appearing, comfortable and no acute distress Orientation: alert, awake and oriented x3 HENMT Head: normal to inspection, no palpable skull fracture, normocephalic and atraumatic Ears: external ears normal, TM's normal bilaterally and EAC's normal Face and sinus: normal facial exam Mouth: moist mucous membranes Throat: uvula midline, abnormal tonsil bilaterally erythema, no peritonsillar masses, posterior oropharynx abnormal erythema and exudates and uvula not displaced Eyes Conjunctivae: conjunctivae normal Sclera: sclerae normal Neck Neck: normal visual inspection, full ROM, no meningeal signs, trachea midline, supple, lymphadenopathy (Anterior-superior cervical) and tender (Tender lymphadenopathy) Resp Effort & Inspection: normal respiratory effort and able to speak in complete sentences Auscultation: clear to auscultation bilaterally Cardio Rate: regular rate Rhythm: regular rhythm GI Palpation: soft and nontender Skin General skin exam: no rashes or lesions noted Neuro General: patient alert, patient awake, moves all extremities and no focal motor deficits Sensory Exam: no sensory deficits noted Psych Appearance: grossly normal Mental Status: mental status grossly normal Course Vital Signs Vital signs: Vital Signs Temperature 36.7 C 05/21/20 11:29 Pulse 73 05/21/20 11:29 Respiratory Rate 16 05/21/20 11:29 Blood Pressure 137/86 05/21/20 11:29 Pulse Oximetry 99 05/21/20 11:29 Temperature 36.7 C 05/21/20 11:29 Temperature Source Temporal Artery Scan 05/21/20 11:29 Pulse 73 05/21/20 11:29 Respiratory Rate 16 05/21/20 11:29 Respiratory Effort Non-Labored 05/21/20 11:32 Blood Pressure 137/86 05/21/20 11:29 Blood Pressure Position Sitting 05/21/20 11:29 Pulse Oximetry 99 05/21/20 11:29 Oxygen Delivery Method Room Air 05/21/20 11:29 Oxygen Flow Rate 0 05/21/20 11:29 Pain Level 5 05/21/20 11:29 Lab/Test Results Lab/Test Results: 05/21/20 11:35 Pharynx Throat Culture - Pending POC Strep Test-SHU(Rapid) Start: 05/21/20 11:40 Freq: .Rapid Strep Test Status: Active Protocol: Document 05/21/20 11:46 NESTOR (Rec: 05/21/20 11:46 SGL [id number]) Strep test-SHU(Rapid)-POC POC-Strep test-SHU (Rapid) Negative POC-Strep test-SUH (Rapid) Negative
== END 2020-05-21 12:24 | disposition home or self-care (01) ==
PROVIDERS: Emergency Provider Physician Assistant; PCP Family Medicine
DX: J02.9 Acute pharyngitis, unspecified (principal)
CPT/HCPCS: 87880; 99283; 87070

== ENCOUNTER 2020-09-06 19:45 | Emergency (ER) | payer MEDICAID, SELFPAY ==
[2020-09-06 19:49] VITALS: BP 113/71; PULSE 63; RESP 16; TEMP 37; O2SAT 93
--- NOTE | 2020-09-06 19:56 | ED.GENADUL_ITS ---
Discharge Plan Disposition Patient Disposition: HOME Condition: Stable Discharge Details Clinical Impression: Lumbago Primary Care Provider: Nba Torres ED Provider: Marcia Ruby Home Meds and New Rx's Prescriptions: New cyclobenzaprine 10 mg tablet 10 mg PO TID PRN (Reason: muscle spasm) Qty: 10 RF: 0 No Action methadone 10 mg/5 mL Solution 180 mg PO DAILY RF: 0 Discharge Instructions Instructions: Low Back Strain (ED) Additional Instructions: Follow up with primary care provider in 3-5 days. Return to ED sooner if any worsening or concerns. Increase oral fluids. Please take Tylenol or Ibuprofen with food every 4-6 hours as needed for pain and swelling. Take medications as prescribed. Alternate ice and heat. Stand Alone Forms: Work Release Referrals: Nba Torres [Primary Care Provider] - Discharge Data Discharge Date/Time-TO BE ENTERED AT DEPARTURE: 09/06/20 21:05 Medical Decision Making 30-year-old male presents to the ED with lower lumbar tenderness for 2 to 3 weeks. 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 Denies any numbness or tingling or weakness in his lower extremities. Denies any saddle anesthesia. No loss of bowel or bladder control.. He reports taking Tylenol or ibuprofen last dose 3 hours ago. No past surgical history of lower back. Does have history of back problems. X-ray lumbar spine ordered, urinalysis. Imaging protocol: XR of the lumbosacral spine, 4 or 5 views. COMPARISON: CR LUMBAR SPINE COMPLETE 02/01/2018 2:31 PM FINDINGS: Bones/joints: There are 5 non rib-bearing lumbar type vertebra. No acute osseous finding, vertebral body heights are preserved. No spondylolisthesis. There is slight relative intervertebral disc height loss at the L4-L5 and L5-S1 levels, this appears stable to minimally worsened to prior exam. Soft tissues: No focal abnormality, IMPRESSION: No acute osseous finding. Stable to minimally worsened slight relative intervertebral disc height loss at the L4-L5 and L5-S1 levels Thank you for allowing us to participate in the care of your patient. Dictated and Authenticated by: Nico Schofield MD Patient was given 60 mg Toradol IM and 10 mg of Flexeril p.o. which improved his symptoms. Patient instructed to follow-up with PCP, alternate ice and heat and prescription was given for Flexeril. Patient verbalized understanding. Steady gait ambulated without difficulty and without assistance prior to discharge. Urinalysis was collected and shows no evidence of UTI or kidney stone. Patient was discharged home. HPI General Mode of arrival: ambulatory . Date/Time Provider Initiated Documentation: 09/06/20 19:52 . Limitations to Documentation: no limitations . Information obtained by: patient . HPI Narrative: 30-year-old male presents to the ED with lower lumbar tenderness for 2 to 3 weeks. 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 Denies any numbness or tingling or weakness in his lower extremities. Denies any saddle anesthesia. No loss of bowel or bladder control.. He reports taking Tylenol or ibuprofen last dose 3 hours ago. No past surgical history of lower back. Does have history of back problems. Related Data Home Medications Medication Instructions Recorded Confirmed cyclobenzaprine 10 mg PO TID PRN #10 tab 09/06/20 methadone 180 mg PO DAILY 09/06/20 09/06/20 Previous Rx's Medication Instructions Recorded cyclobenzaprine 10 mg PO TID PRN #10 tab 09/06/20 Allergies Allergy/AdvReac Type Severity Reaction Status Date / Time No Known Allergies Allergy Unverified 05/21/20 11:33 General Stated Complaint: Nk/Back Pain JULIO: 4 Review of Systems Narrative: Constitutional: Negative for weight loss, alert and oriented, well groomed, normal body habitus, appears comfortable. HEENT: Denies trauma, headaches, blurry vision, nasal discharge, sore throat, trouble swallowing. Chest: Denies chest pain, palpitations, irregular rhythm, hypertension. Respiratory: Denies Shortness of breath, cough, hemoptysis. GI: Denies abdominal pain, nausea, vomiting, diarrhea, constipation. : Denies dysuria, hematuria, flank pain, rectal bleeding. Neuro: Denies dizziness, blurry vision, weakness, syncope, headache or facial numbness. Hematologic: Denies easy bruising, intolerance to heat or cold, hair loss. [facility] Medical History (Updated 09/06/20 @ 20:47 by Marcia Ruby) ADHD Bipolar disorder Seizure disorder Surgical History History of hernia repair Social History Smoking/Tobacco Use Status: Current every day Tobacco Type: cigarettes Smoking risk assessment performed?: Yes Alcohol Intake: current Alcohol Intake frequency: a few times a month Alcohol type: beer Drug use: Daily Substance use type: marijuana Do you feel safe at home: Yes Do you feel safe in your relationship?: Yes Exam Narrative Exam Narrative: Constitutional: Alert and oriented x3. Appears stated age. No rmal body habitus. Head: Normocephalic, no trauma. Eyes: Pupils PERRLA, Red reflex noted, EOM's intact. Eyelids symmetrical without lesions, discharge, or swelling. ENT: Bilateral TM's WNL, External ear normal to inspection, no mastoid TTP, swelling, or erythema, Nasal turbinates WNL, no nasal discharge. Normal dentition, Posterior pharynx WNL, no exudate. Chest: RRR, Normal S1, S2, distal pulses intact. Resp: Lungs clear to auscultation bilaterally, no wheezes, rales, or rhonchi. Musculoskeletal: Normal gait, 5/5 strength to all four extremities. Skin: No suspicious rashes or lesions. Capillary refill less than 2 sec. Neurologic: Cranial nerves II-XII intact. Alert and oriented x 3. DTR's intact. Hematologic/Lymphatic: No ecchymosis, no lymphadenopathy. Course Vital Signs Vital signs: Vital Signs Temperature 37.0 C 09/06/20 19:49 Pulse 63 09/06/20 19:49 Respiratory Rate 16 09/06/20 19:49 Blood Pressure 113/71 09/06/20 19:49 Pulse Oximetry 93 09/06/20 19:49 Temperature 37.0 C 09/06/20 19:49 Temperature Source Skin 09/06/20 19:49 Pulse 63 09/06/20 19:49 Respiratory Rate 16 09/06/20 19:49 Respiratory Effort 09/06/20 19:53 Blood Pressure 113/71 09/06/20 19:49 Blood Pressure Position Sitting 09/06/20 19:49 Pulse Oximetry 93 09/06/20 19:49 Oxygen Delivery Method Room Air 09/06/20 19:49 Oxygen Flow Rate 0 09/06/20 19:49 Pain Level 7 09/06/20 19:53
[2020-09-06 20:09] LABS: Bilirubin Negative (Negative); Blood Negative (Negative); Clarity Clear (Clear); Glucose Negative (Negative); Ketones Negative (Negative); Leukocyte Esterase Negative (Negative); Nitrite Negative (Negative); Specific Gravity >= 1.030 (1.005-1.025); Urobilinogen 0.2 EU/dL (Up TO 0.2)
--- NOTE | 2020-09-06 20:23 | DI.RAD_ITS ---
EXAM: XR LUMBAR SPINE COMPLETE CLINICAL HISTORY: Lower back pain. TECHNIQUE: 2D digital imaging was performed. COMPARISON: CR LUMBAR SPINE COMPLETE from 02/01/2018 FINDINGS: BONES: No fracture or destructive lesion. Vertebral bodies are unremarkable. No facet hypertrophy bob ntified. DISKS: Intervertebral disc spaces are maintained. ALIGNMENT: Lumbar spinal alignment is within normal limits. SOFT TISSUE: Normal. IMPRESSION: Unremarkable radiographs of the lumbar spine. DATA REPOSITORY: RADIATION DOSE DELIVERED:
[2020-09-06] MEDS: Ketorolac 60 MG/2 ML VIAL IM (20:28)
[2020-09-06] MEDS: Cyclobenzaprine 10 MG TAB PO (20:28)
--- NOTE | 2020-09-06 20:37 | DI.VRAD_ITS ---
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 COMPARISON: CR LUMBAR SPINE COMPLETE 02/01/2018 2:31 PM FINDINGS: Bones/joints: There are 5 non rib-bearing lumbar type vertebra. No acute osseous finding, vertebral body heights are preserved. No spondylolisthesis. There is slight relative intervertebral disc height loss at the L4-L5 and L5-S1 levels, this appears stable to minimally worsened to prior exam. Soft tissues: No focal abnormality, IMPRESSION: No acute osseous finding. Stable to minimally worsened slight relative intervertebral disc height loss at the L4-L5 and L5-S1 levels Dictated and Authenticated by: Nico Schofield MD. Ordering:SAMUEL Kennedy MD
== END 2020-09-06 21:05 | disposition home or self-care (01) ==
PROVIDERS: Emergency Provider Registered Nurse Emergency; PCP Family Medicine
DX: M54.5 Low back pain (principal); X50.0XXA Overexertion from strenuous movement or load, initial encounter; Y99.0 Civilian activity done for income or pay
CPT/HCPCS: 96372; 99284; 72110; 81003; J1885

== ENCOUNTER 2021-02-26 03:40 | Outpatient (CLI) | payer MEDICAID, SELFPAY ==
--- NOTE | 2021-02-26 09:15 | RT.EKG_ITS ---
APPROVED REPORT Exam: Resting ECG Patient Location: O HR:52 bpm ECG Measurements Heart Rate 52 AXIS [place] 188 P 48 QRSd 107 QRS -10 QT 446 T 19 QTc 417 Conclusion Sinus bradycardia...rate< 60 ST elev, probable normal early repol pattern...ST elevation, age<55
== END 2021-02-26 03:41 | disposition home or self-care (01) ==
LOC: RT 03:40
PROVIDERS: PCP Family Medicine; Visit Provider Family Medicine
DX: Z79.899 Other long term (current) drug therapy (principal)
CPT/HCPCS: 93005; 93010

== ENCOUNTER 2021-03-26 13:48 | Outpatient (REF) | payer MEDICAID, SELFPAY ==
[2021-03-28 09:19] LABS: Hepatitis B Surface Ag Negative (Negative)
[2021-03-28 10:10] LABS: HIV-1/2 Ag & Ab Screen Negative (Negative)
[2021-03-28 10:41] LABS: Hepatitis C Ab w Rflx HCV PCR Reactive (Negative)
[2021-03-29 14:22] LABS: HCV RNA Qualitative Detected (Undetected)
== END 2021-03-26 13:49 | disposition home or self-care (01) ==
LOC: LBN 13:48
PROVIDERS: PCP Family Medicine; Visit Provider Nurse Practitioner Family
DX: F11.20 Opioid dependence, uncomplicated (principal); Z11.3 Encounter for screening for infections with a predominantly sexual mode of transmission; Z11.59 Encounter for screening for other viral diseases; Z11.4 Encounter for screening for human immunodeficiency virus [HIV]
CPT/HCPCS: 86803; 87340; 87389; 87522

== ENCOUNTER 2021-08-10 14:52 | Emergency (ER) | payer SELFPAY ==
[2021-08-10 15:07] VITALS: BP 132/99; PULSE 93; RESP 16; TEMP 36.4; O2SAT 97
== END 2021-08-10 15:21 ==
LOC: ER 19:19
PROVIDERS: PCP Family Medicine
DX: Z53.29 Procedure and treatment not carried out because of patient's decision for other reasons (principal)

== ENCOUNTER 2021-11-20 14:29 | Emergency (ER) | payer MEDICAID, SELFPAY ==
[2021-11-20] VITALS (9 sets, daily range): BP systolic 105–142; BP diastolic 62–97; PULSE 60–97; RESP 16–33; TEMP 36.6–37.2; O2SAT 97–99
--- NOTE | 2021-11-20 14:15 | RT.EKG_ITS ---
APPROVED REPORT Exam: Resting ECG Reason for Exam: fentanyl use Patient Location: E HR:78 bpm ECG Measurements Heart Rate 78 AXIS DE 169 P 79 QRSd 96 QRS 28 QT 352 T 39 QTc 400 Conclusion Sinus rhythm...normal P axis, V-rate 60- 99 ST elev, probable normal early repol pattern...ST elevation, age<55
--- NOTE | 2021-11-20 15:01 | ED.GENADUL_ITS ---
Discharge Plan Disposition Patient Disposition: HOME Condition: Stable Discharge Details Clinical Impression: Opioid withdrawal Primary Care Provider: Nba Torres ED Provider: Akshat Spears Home Meds and New Rx's Prescriptions: Continued methadone 10 mg/5 mL Solution 180 mg PO DAILY RF: 0 cyclobenzaprine 10 mg tablet 10 mg PO TID PRN (Reason: muscle spasm) Qty: 10 RF: 0 Discharge Instructions Instructions: Opioid Withdrawal (ED) Referrals: Nba Torres [Primary Care Provider] - Discharge Data Discharge Date/Time-TO BE ENTERED AT DEPARTURE: 11/20/21 17:55 Medical Decision Making 31yo m with opioid use disorder here in opioid withdrawal. Patient has had difficulty securing transportation to [facility] for the past 2 weeks and has been using fentanyl. He also noted to nursing that he has been using heroin. I attempted to contact [facility] to confirm dosing and discuss treatment - unfortunately no one available and no one return call left with answering service. Plan to administer dose listed in [facility] (180mg - this is less than the 220mg dose patient states that he has been on). Patient was reassessed after methadone treatment and noted to be feeling better. I consulted ED care management and requested that they assist with transportation and coordinate with [facility] tomorrow to ensure compliance with outpatient treatment. HPI General Date/Time Provider Initiated Documentation: 11/20/21 14:49 . Limitations to Documentation: no limitations . Information obtained by: patient . HPI Narrative: 31yo m with opioid use disorder, here with chief complaint of withdrawal. Patient notes he typically takes methadone but has not been able to secure transportation to [facility] for the past 2 weeks. He has been using illicit fentanyl. He last used fentanyl earlier today about 1 hour prior to arrival. Patient notes withdrawal is severe, constant, no modifiers. He has nausea. He denies chest pain or shortness of breath. Related Data Home Medications Medication Instructions Recorded Confirmed cyclobenzaprine 10 mg PO TID PRN #10 tab 09/06/20 11/20/21 methadone 180 mg PO DAILY 09/06/20 11/20/21 Previous Rx's Medication Instructions Recorded cyclobenzaprine 10 mg PO TID PRN #10 tab 09/06/20 Allergies Allergy/AdvReac Type Severity Reaction Status Date / Time No Known Allergies Allergy Unverified 11/20/21 14:24 General Stated Complaint: DrugWithdr/MAT JULIO: 3 Review of Systems All systems reviewed & are unremarkable except as noted in HPI and below Constitutional Constitutional: Reports body ache(s) Cardiovascular Cardiovascular: Denies chest pain Respiratory Respiratory: Denies cough PFSH All Active Problems Opioid withdrawal (Acute) Medical History ADHD Bipolar disorder Seizure disorder Surgical History History of hernia repair Social History Smoking/Tobacco Use Status: Current every day Tobacco Type: cigarettes Smoking risk assessment performed?: Yes Alcohol Intake: current Alcohol Intake frequency: a few times a month Alcohol type: beer Drug use: Occasionally Substance use type: marijuana and heroin 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 Do you feel safe at home: Yes Do you feel safe in your relationship?: Yes Exam Const General: uncomfortable Nutritional Appearance: well nourished Orientation: alert and awake HENWY Head: normocephalic and atraumatic Mouth: moist mucous membranes Eyes Conjunctivae: normal conjunctivae Neck Neck: trachea midline and supple Resp Auscultation: clear to auscultation bilaterally, no rales, no rhonchi and no wheezes Cardio Rate: regular rate and not tachycardic Rhythm: regular rhythm GI Palpation: soft, not firm, no guarding, no masses, not rigid and nontender Neuro General: patient alert, patient awake, patient oriented x3 and tone normal Extrem General: no edema Psych Appearance: grossly normal Mental Status: mental status grossly normal Speech and Movement: speech and movement normal Course Vital Signs Vital signs: Vital Signs Temperature 37.2 C 11/20/21 14:20 Pulse 74 11/20/21 14:20 Respiratory Rate 16 11/20/21 14:20 Pulse Oximetry 99 11/20/21 14:20 Temperature 37.2 C 11/20/21 14:20 Temperature Source Temporal Artery Scan 11/20/21 14:20 Pulse 74 11/20/21 14:20 Respiratory Rate 16 11/20/21 14:20 Respiratory Effort Non-Labored 11/20/21 14:25 Respiratory Pattern Normal 11/20/21 14:25 Blood Pressure Position Supine 11/20/21 14:20 Pulse Oximetry 99 11/20/21 14:20 Oxygen Delivery Method Room Air 11/20/21 14:20 Oxygen Flow Rate 0 11/20/21 14:20 Pain Level 0 11/20/21 14:20
[2021-11-20 15:10] LABS: Bilirubin Negative (Negative); Blood Negative (Negative); Clarity Clear (Clear); Glucose Negative (Negative); Ketones Negative (Negative); Leukocyte Esterase Negative (Negative); Nitrite Negative (Negative); Urobilinogen 0.2 EU/dL (Up TO 0.2); pH 8.5 (5-8)
[2021-11-20] MEDS: Methadone Liquid 10 MG/ML 180 MG PO (15:39)
[2021-11-20 15:44] LABS: *AMPHETAMINES SCREEN URINE Negative (Negative); *BARBITURATES SCREEN URINE Negative (Negative); *BENZODIAZEPINES SCREEN URINE Negative (Negative); Cannabinoids THC Positive (Negative); Cocaine Screen,Urine Positive (Negative); METHADONE URINE SCREEN Negative (Negative); OPIATES URINE SCREEN Negative (Negative)
[2021-11-20 15:55] LABS: Tricyclic Antidepressants Negative (Negative)
== END 2021-11-20 17:55 | disposition home or self-care (01) ==
LOC: ER 17:42
PROVIDERS: Emergency Provider Student in an Organized Health Care Education/Training Program; PCP Family Medicine
DX: F11.23 Opioid dependence with withdrawal (principal)
CPT/HCPCS: 36415; 80307; 93005; 99283; 81003; 93010

== ENCOUNTER 2022-02-28 18:40 | Emergency (ER) | payer MEDICAID, SELFPAY ==
[2022-02-28 18:44] VITALS: BP 107/78; PULSE 80; RESP 18; TEMP 36.6; O2SAT 97
--- NOTE | 2022-02-28 18:55 | ED.GENADUL_ITS ---
Discharge Plan Disposition Patient Disposition: HOME Condition: Stable Discharge Details Clinical Impression: Cellulitis and abscess of upper arm and forearm Primary Care Provider: Nba Torres ED Provider: Hellen Hendricks Home Meds and New Rx's Prescriptions: New cephalexin 500 mg capsule 500 mg PO QID 7 Days Qty: 28 0RF sulfamethoxazole-trimethoprim [Bactrim DS] 800-160 mg tablet 1 tab PO BID 7 Days Qty: 14 0RF Continued methadone 10 mg/5 mL Solution 180 mg PO DAILY 0RF cyclobenzaprine 10 mg tablet 10 mg PO TID PRN (Reason: muscle spasm) Qty: 10 0RF Discharge Instructions Instructions: Cephalexin (By mouth), Sulfamethoxazole/Trimethoprim (By mouth), Cellulitis (ED) Additional Instructions: Your infection today was concerning for an abscess as well surrounding skin infection. The abscess is open and packed with dressing. This should allow the bacteria to completely come out and allow for healing. Please return to the emergency department on Thursday to have the wound evaluated and possibly have the packing removed. Please leave the dressing in place until that time. You will need to take antibiotics to allow for this to clear. You are being sent home for dosing for tonight and first thing tomorrow morning. After that, you will need to get the rest at the pharmacy. This has been sent to [facility] and [facility]. Please encourage hydration. Can use Tylenol and ibuprofen as needed for discomfort. I have referred you to the general surgery clinic for continued management of this abscess. Please call Thursday morning to schedule follow-up appointment, number listed below. If you develop increased swelling, numbness/tingling, fever/chills or other new/worsening symptoms please seek care urgently once again. Otherwise, please return in to the Emergency Department on Thursday for reevaluation. Referrals: Daria So MD [ [facility] STAFF PHYSICIAN] - Nba Torres [Primary Care Provider] - Medical Decision Making Patient is a pleasant [id number] 31-year-old male presenting today with chief complaint of abscess of left elbow. He reports that this has been developing over the past few days. States the pain is worse with any type of movement, particularly flexion of the arm. Patient states that he had a relapse on drug addiction few months ago and has been injecting heroin. States that he does use clean needles from the needle exchange. Patient reports that he does tend to pick at his skin and has attempted to open this at home without success. Denies any fevers or chills. States that he has been feeling dope sick. Has been self medicated with methadone or Suboxone at home. States he does have a plan to meet with [facility] clinic next week if he does wish to be sober. On exam, patient appears nontoxic. Vital signs are stable. He has a 5 cm circular abscess in the left AC. He does have cellulitis that extends inferior to this. I did explore the area with ultrasound and it does appear to be fluid collection localized to the circular area of fluctuance in the left AC. This does not appear to track. Patient able to supinate and pronate. Flexion is limited but this appears to be more from the amount of swelling rather than pain within the joint. He does not have any pain on palpation elsewhere about the joint. 2+ distal pulses. Sensation is intact. Patient does have multiple track singh on the right arm as well as areas where he has been picking appears to have minor chronic appearing wounds. These do not appear infected. Patient discussed with/benefits as well as expected procedural steps associated with incision and drainage of the abscess. He voiced understanding and wished to proceed. Please see procedure note. Let was first applied to provide from anesthesia to this area. There was then further anesthetized with 1% lidocaine plain. Copious amounts of purulent drainage was expressed from this. This was irrigated, loculations were broken up. Wound is then packed with iodoform. Dressing applied over this. Culture was sent I am concerned for potential MRSA coverage with Bactrim and Keflex would be appropriate. Patient discussed wound care and that. I am concerned about the patient's ability to be able to take care of the packing and dressing. I would prefer to have him come back to the emergency department on Thursday for reevaluation and to determine if further packing is warranted or if this can be removed. As the patient does tend to pick significantly at his wounds, I asked that he leave the dressing on to try and keep this as clean as possible. Strict return precautions were given. 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 He has an appointment with [facility] for next week to begin treatment for his substance abuse disorder. All his questions and concerns were addressed with agreement with plan. For long-term follow-up, plan to have the patient work with general surgery and have placed a referral with them for next week. HPI General Date/Time Provider Initiated Documentation: 02/28/22 18:41 . Limitations to Documentation: no limitations . Information obtained by: patient and RN notes reviewed . History of Present Illness 31 year old M presents to the emergency department with the chief complaint of Abscess left arm, described as severe, with intensity rated at 9. Quality is described as burning, and is localized to the left and upper extremity. Patient reports no radiation. Patient started experiencing this day(s) and it has been constant. improves with Immobilization improves symptom(s), Movement worsens symptoms . Patient notes no other symptoms.. Patient did receive the following treatments prior to arrival, none Related Data Home Medications Medication Instructions Recorded Confirmed cyclobenzaprine 10 mg tablet 10 mg PO TID PRN #10 tab 09/06/20 11/20/21 methadone 10 mg/5 mL oral solution 180 mg PO DAILY 09/06/20 11/20/21 cephalexin 500 mg capsule 500 mg PO QID 7 Days #28 cap 02/28/22 sulfamethoxazole 800 1 tab PO BID 7 Days #14 tab 02/28/22 mg-trimethoprim 160 mg tablet (Bactrim DS) Previous Rx's Medication Instructions Recorded cyclobenzaprine 10 mg tablet 10 mg PO TID PRN #10 tab 09/06/20 cephalexin 500 mg capsule 500 mg PO QID 7 Days #28 cap 02/28/22 sulfamethoxazole 800 1 tab PO BID 7 Days #14 tab 02/28/22 mg-trimethoprim 160 mg tablet (Bactrim DS) Allergies Allergy/AdvReac Type Severity Reaction Status Date / Time No Known Allergies Allergy Unverified 11/20/21 14:24 General Stated Complaint: Cellulitis JULIO: 3 Review of Systems Constitutional Constitutional: Reports as per HPI, Denies chills and Denies fever(s) Musculoskeletal Musculoskeletal: Reports as per HPI Integumentary/Breasts Skin/Breast: Reports as per HPI Neurologic Neurologic: Reports as per HPI, Denies sensory deficit and Denies paresthesias PFSH All Active Problems (Updated 02/28/22 @ 20:01 by PAIGE Hudson) Cellulitis and abscess of upper arm and forearm (Acute) Medical History (Updated 02/28/22 @ 20:01 by PAIGE Hudson) ADHD Bipolar disorder Seizure disorder Surgical History History of hernia repair Social History Smoking/Tobacco Use Status: Current every day Tobacco Type: cigarettes Smoking risk assessment performed?: Yes Alcohol Intake: current Alcohol Intake frequency: a few times a month Alcohol type: beer Drug use: Occasionally Substance use type: marijuana and heroin 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 Do you feel safe at home: Yes Do you feel safe in your relationship?: Yes Exam Const General: cooperative, healthy appearing, comfortable, no acute distress and well developed Nutritional Appearance: average body habitus and well nourished Orientation: alert and awake Resp Effort & Inspection: normal respiratory effort, able to speak in complete sentences and no respiratory distress Cardio Rate: regular rate Rhythm: regular rhythm Skin General skin exam: erythema, excoriation, fluctuance and induration Neuro General: patient alert and patient awake Cognition: normal cognition Speech: speech normal Gait: normal gait Sensory Exam: no sensory deficits noted Extrem Elbow/forearm/wrist images: 1. Erythematous, warm, fluctuant area consistent with abscess. Centrally has a few small poke wounds and white area consistent with areas where he has picked at the wound. 2. Area of erythema and induration. No fluctuance. Limited ROM with flexion associated with pain at area of swelling. Full pronation/supination Psych Appearance: grossly normal and well kempt Mental Status: mental status grossly normal Speech and Movement: speech and movement normal Course Vital Signs Vital signs: Vital Signs Temperature 36.6 C 02/28/22 18:44 Pulse 80 02/28/22 18:44 Respiratory Rate 18 02/28/22 18:44 Blood Pressure 107/78 02/28/22 18:44 Pulse Oximetry 97 02/28/22 18:44 Temperature 36.6 C 02/28/22 18:44 Temperature Source Tympanic 02/28/22 18:44 Pulse 80 02/28/22 18:44 Respiratory Rate 18 02/28/22 18:44 Respiratory Effort 02/28/22 18:47 Blood Pressure 107/78 02/28/22 18:44 Blood Pressure Position Sitting 02/28/22 18:44 Pulse Oximetry 97 02/28/22 18:44 Oxygen Delivery Method Room Air 02/28/22 18:44 Oxygen Flow Rate 0 02/28/22 18:44 Pain Level 9 02/28/22 18:44 Procedures Abscess I/D Site: Upper Extremity Side (if applicable): Left Sedation/analgesia: None Local Anesthetic: Lidocaine 1% Amount of anesthesia used (mL): 8 Technique: Incised with #11 Blade Amount of fluid expressed (mL): 10 Irrigation: Yes Packing used?: Iodoform Complications: Other (none)
[2022-02-28] MEDS: Lidocaine/Epinephri/Tetracaine Topical Gel 3 ML (19:26)
[2022-02-28] MEDS: Sulfameth/Trimeth DS TAB 1 TAB PO (20:06)
[2022-02-28] MEDS: Sulfameth/Trimeth DS, 2 TABS/BTL 1 TAB PO (20:07)
[2022-02-28] MEDS: Cephalexin 500 MG CAP PO (20:07)
[2022-02-28] MEDS: Cephalexin 500 MG CAP, 2 CAPS/BTL PO (20:07)
[2022-02-28 20:15] VITALS: BP 110/78; PULSE 89; RESP 18; TEMP 36.6; O2SAT 98
== END 2022-02-28 20:17 | disposition home or self-care (01) ==
PROVIDERS: Emergency Provider Physician Assistant; PCP Family Medicine
DX: L02.414 Cutaneous abscess of left upper limb (principal)
CPT/HCPCS: 10061; 87077; 87070; 87205